=== PATIENT | male | born 1955 | race Hispanic/Latino ===

== ENCOUNTER 2021-05-01 10:07 | Inpatient (IN) | payer OTHER ==
[2021-05-01] MEDS ORDERED: Ketorolac Tromethamine 30 MG/ML VIAL ONE (10:57)
[2021-05-01] MEDS ORDERED: Dexamethasone 10 MG/ML VIAL ONE (10:57)
[2021-05-01] MEDS ORDERED: cefTRIAXone\\ROCEPHIN 2 GM VIAL ONE (10:57)
[2021-05-01] MEDS ORDERED: Acetaminophen 500 MG TAB ONE (10:57)
[2021-05-01] MEDS ORDERED: Azithromycin 500 MG VIAL ONE (10:58)
[2021-05-01 11:19] LABS: #Basophils 0.1 10x3/uL (0.0-0.2); #Monocytes 0.6 10x3/uL (0.0-1.1); #Neutrophils 13.2 10x3/uL (1.5-8.4); %Basophils 0.3 % (0.0-2.0); %Eosinophils 0.3 % (0.0-6.0); %Lymphocytes 5.2 % (18.0-47.0); %Monocytes 3.8 % (0.0-10.0); %Neutrophils 87.2 % (40.0-75.0); Hemoglobin 12.6 g/dL (13.5-17.5); Mean Corpuscular HGB CONC 34.4 g/dL (32.0-36.0); Mean Corpuscular Hemoglobin 29.3 pg (27.0-33.0); Mean Corpuscular Volume 85.1 fl (81.2-95.1); Mean Platelet Volume 10.3 fl (7.4-10.4); Platelet Count 368 10x3/uL (150-450); RBC Distribution Width 13.1 % (11.5-14.5); White Blood Cell (WBC) Count 15.2 10x3/uL (3.5-10.5)
[2021-05-01 11:28] LABS: Actual Bicarbonate (HCO3a) 23.1 mEq/L (22-28); Base Excess (BEa) 0.4 mEq/L (-2.0 to +3.0); CO2 Tension 30.8 mmHg (35.0-45.0); Calcium, Ionized (arterial) 1.01 mmol/L (1.12-1.30); Carboxyhemoglobin (COHb) 0.3 gm% (0.0-3.0); Hemoglobin (Hb) 11.5 g/dL (14.0-18.0); O2 Tension (PaO2), arterial 97.3 mmHg (> 80.0); Potassium - ABG Lab 3.3 mmol/L (3.70-5.30); Puncture Site RRA; pH, Arterial 7.49 (7.35-7.45)
[2021-05-01 11:28] LABS: ALT (SGPT) 74 U/L (8-55); AST (SGOT) 53 U/L (5-34); Albumin 3.4 g/dL (3.4-4.8); Alkaline Phosphatase 166 U/L (40-110); Anion Gap 18 mmol/L (10-20); BUN (Urea Nitrogen) 18 mg/dL (8.4-25.7); Bilirubin, Total 0.9 mg/dL (0.2-1.2); Calc. Creatinine Clearance 0 mL/min (70-130); Calcium 9.5 mg/dL (7.8-10.44); Carbon Dioxide 24 mmol/L (23-31); Chloride 94 mmol/L (98-107); Globulin 4.6 g/dL (2.4-3.5); Glucose 244 mg/dL (80-115); Potassium 3.8 mmol/L (3.5-5.1); Sodium 132 mmol/L (136-145)
[2021-05-01 11:48] LABS: CKMB 1.1 ng/mL (0-6.6)
[2021-05-01 12:33] LABS: SARS-CoV-2 NAA Rapid Test DETECTED (NotDetected)
[2021-05-01] MEDS ORDERED: Ivermectin 3 MG TAB PO SCH ×2 (13:00→16:15)
[2021-05-01] MEDS ORDERED: Enoxaparin Sodium 80 MG/0.8 ML SYRINGE ONE (13:58)
[2021-05-01] MEDS ORDERED: Ventolin HFA Inhaler 60 PUFF INHALER ONE (13:59)
[2021-05-01] MEDS ORDERED: Dextrose 50% Abboject 50 ML SYRINGE SLOW IVP PRN (14:12)
[2021-05-01] MEDS ORDERED: Dextrose 5% in Water 1,000 ML IV PRN (14:12)
[2021-05-01] MEDS ORDERED: HumaLOG 300 UNITS/3 ML VIAL SC PRN (14:12)
[2021-05-01] MEDS ORDERED: Guaifenesin DM 100-10/5 ML UDCUP PO PRN (14:13)
[2021-05-01] MEDS ORDERED: Sodium Chloride 0.9% 500 ML IV SCH (14:15)
[2021-05-01 14:49] LABS: Troponin I 0.071 ng/mL (< 0.028)
[2021-05-01 15:16] LABS: Lactic Acid 1.9 mmol/L (0.5-2.2)
[2021-05-01 16:10] LABS: Troponin I 0.065 ng/mL (< 0.028)
[2021-05-01] MEDS: Benzonatate 100 MG CAP PO PRN ×2 (17:04→22:51)
[2021-05-01] MEDS ORDERED: Tocilizumab 400 MG, Tocilizumab 200 MG in Sodium Chloride 0.9% 100 ML IV SCH (19:30)
[2021-05-01] MEDS: Colchicine 0.6 MG TAB PO SCH (20:08)
[2021-05-01] MEDS: Dexamethasone 10 MG in Sodium Chloride 0.9% 50 ML IVPB SCH (20:09)
[2021-05-01] MEDS: HumaLOG 300 UNITS/3 ML VIAL SC PRN (21:15)
[2021-05-02] MEDS: HumaLOG 300 UNITS/3 ML VIAL SC PRN ×4 (08:26→20:20)
[2021-05-02] MEDS: Enoxaparin Sodium 40 MG/0.4 ML SYRINGE SC SCH (08:27)
[2021-05-02] MEDS: Cholecalciferol 1,000 UNITS (25 MCG) TAB PO SCH (08:28)
[2021-05-02] MEDS: Zinc Sulfate 220 MG CAP PO SCH (08:28)
[2021-05-02] MEDS: Colchicine 0.6 MG TAB PO SCH (08:28)
[2021-05-02] MEDS: Ascorbic Acid 500 mg Chewable Tablet PO SCH (08:28)
[2021-05-02] MEDS: Pantoprazole 40 MG VIAL IVP SCH (08:30)
[2021-05-02] MEDS: Dexamethasone 10 MG in Sodium Chloride 0.9% 50 ML IVPB SCH ×2 (08:47→20:19)
[2021-05-02 08:53] LABS: ALT (SGPT) 62 U/L (8-55); AST (SGOT) 41 U/L (5-34); Alkaline Phosphatase 161 U/L (40-110); Anion Gap 18 mmol/L (10-20); BUN (Urea Nitrogen) 22 mg/dL (8.4-25.7); Bilirubin, Total 0.5 mg/dL (0.2-1.2); Calc. Creatinine Clearance 99 mL/min (70-130); Calcium 8.8 mg/dL (7.8-10.44); Carbon Dioxide 20 mmol/L (23-31); Chloride 98 mmol/L (98-107); Globulin 3.9 g/dL (2.4-3.5); Glucose 360 mg/dL (80-115); Potassium 4.1 mmol/L (3.5-5.1); Protein, Total 6.9 g/dL (5.8-8.1); Sodium 132 mmol/L (136-145)
[2021-05-02] MEDS ORDERED: Ivermectin 3 MG TAB PO SCH (09:00)
[2021-05-02] MEDS: Benzonatate 100 MG CAP PO PRN ×2 (09:18→13:43)
[2021-05-02] MEDS ORDERED: Azithromycin 500 MG in Sodium Chloride 0.9% 250 ML 250 ML IVPB SCH (11:00)
[2021-05-02 11:45] LABS: Hemoglobin A1c 8.7 % (4.0-6.0)
[2021-05-02] MEDS: cefTRIAXone\\ROCEPHIN 1 GM in Sodium Chloride 0.9% 100 ML IVPB SCH (12:04)
[2021-05-02] MEDS ORDERED: Lantus 1000 UNITS/10 ML VIAL SC SCH (21:00)
[2021-05-03] MEDS ORDERED: Insulin Regular 300 UNITS/3 ML VIAL ONE (00:04)
[2021-05-03] MEDS ORDERED: Insulin Regular 300 UNITS/3 ML VIAL IVP SCH (00:15)
[2021-05-03] MEDS ORDERED: INSULIN REGULAR IN 0.9 % NACL 100 UNIT in Sodium Chloride 0.9% 100 ML IVPB SCH (01:30)
[2021-05-03] MEDS: INSULIN REGULAR IN 0.9 % NACL 100 UNIT in Premix Bag 1 BAG IVPB SCH ×2 (01:59→07:51)
[2021-05-03 04:46] LABS: ALT (SGPT) 49 U/L (8-55); AST (SGOT) 20 U/L (5-34); Albumin 2.8 g/dL (3.4-4.8); Alkaline Phosphatase 180 U/L (40-110); Anion Gap 14 mmol/L (10-20); BUN (Urea Nitrogen) 26 mg/dL (8.4-25.7); Bilirubin, Total 0.3 mg/dL (0.2-1.2); CRP (Inflammatory) 15.93 mg/dL (= or < 0.5); Calc. Creatinine Clearance 97 mL/min (70-130); Calcium 8.8 mg/dL (7.8-10.44); Carbon Dioxide 23 mmol/L (23-31); Chloride 102 mmol/L (98-107); Globulin 3.6 g/dL (2.4-3.5); Glucose 343 mg/dL (80-115); Potassium 3.9 mmol/L (3.5-5.1); Protein, Total 6.4 g/dL (5.8-8.1); Sodium 135 mmol/L (136-145)
[2021-05-03] MEDS: Zinc Sulfate 220 MG CAP PO SCH (08:17)
[2021-05-03] MEDS: Enoxaparin Sodium 40 MG/0.4 ML SYRINGE SC SCH (08:17)
[2021-05-03] MEDS: Cholecalciferol 1,000 UNITS (25 MCG) TAB PO SCH (08:17)
[2021-05-03] MEDS: Pantoprazole 40 MG VIAL IVP SCH (08:17)
[2021-05-03] MEDS: Ascorbic Acid 500 mg Chewable Tablet PO SCH (08:18)
[2021-05-03] MEDS: cefTRIAXone\\ROCEPHIN 1 GM in Sodium Chloride 0.9% 100 ML IVPB SCH (12:00)
[2021-05-03] MEDS ORDERED: Dextrose 50% Abboject 50 ML SYRINGE SLOW IVP PRN (16:08)
[2021-05-03] MEDS ORDERED: Dextrose 5% in Water 1,000 ML IV PRN (16:08)
[2021-05-03] MEDS: Benzonatate 100 MG CAP PO PRN (20:17)
[2021-05-03] MEDS ORDERED: Lantus 1000 UNITS/10 ML VIAL SC SCH (21:00)
[2021-05-03] MEDS: HumaLOG 300 UNITS/3 ML VIAL SC PRN (21:26)
[2021-05-04] MEDS: Enoxaparin Sodium 40 MG/0.4 ML SYRINGE SC SCH (08:22)
[2021-05-04] MEDS: Pantoprazole 40 MG VIAL IVP SCH (08:22)
[2021-05-04] MEDS: Ascorbic Acid 500 mg Chewable Tablet PO SCH (08:22)
[2021-05-04] MEDS: Zinc Sulfate 220 MG CAP PO SCH (08:22)
[2021-05-04] MEDS: Cholecalciferol 1,000 UNITS (25 MCG) TAB PO SCH (08:22)
[2021-05-04] MEDS: HumaLOG 300 UNITS/3 ML VIAL SC PRN ×4 (08:40→21:34)
[2021-05-04 09:13] LABS: ALT (SGPT) 59 U/L (8-55); AST (SGOT) 41 U/L (5-34); Alkaline Phosphatase 166 U/L (40-110); Anion Gap 15 mmol/L (10-20); BUN (Urea Nitrogen) 22 mg/dL (8.4-25.7); Bilirubin, Total 0.6 mg/dL (0.2-1.2); Calc. Creatinine Clearance 110 mL/min (70-130); Carbon Dioxide 24 mmol/L (23-31); Chloride 101 mmol/L (98-107); Globulin 3.7 g/dL (2.4-3.5); Glucose 324 mg/dL (80-115); Potassium 4.5 mmol/L (3.5-5.1); Protein, Total 6.7 g/dL (5.8-8.1); Sodium 135 mmol/L (136-145)
[2021-05-04] MEDS: cefTRIAXone\\ROCEPHIN 1 GM in Sodium Chloride 0.9% 100 ML IVPB SCH (11:47)
[2021-05-04] MEDS: Lantus 1000 UNITS/10 ML VIAL SC SCH (21:33)
[2021-05-05 04:29] LABS: #Basophils 0.1 10x3/uL (0.0-0.2); #Eosinphils 0.2 10x3/uL (0.0-0.5); #Monocytes 0.7 10x3/uL (0.0-1.1); #Neutrophils 15.7 10x3/uL (1.5-8.4); %Basophils 0.3 % (0.0-2.0); %Eosinophils 0.8 % (0.0-6.0); %Monocytes 3.6 % (0.0-10.0); %Neutrophils 86.6 % (40.0-75.0); Mean Corpuscular HGB CONC 34.6 g/dL (32.0-36.0); Mean Corpuscular Hemoglobin 29.6 pg (27.0-33.0); Mean Corpuscular Volume 85.6 fl (81.2-95.1); Mean Platelet Volume 9.7 fl (7.4-10.4); Platelet Count 462 10x3/uL (150-450); RBC Distribution Width 13.1 % (11.5-14.5); Red Blood Cell (RBC) Count 4.39 10x6/uL (4.32-5.72); White Blood Cell (WBC) Count 18.1 10x3/uL (3.5-10.5)
[2021-05-05 04:42] LABS: ALT (SGPT) 63 U/L (8-55); AST (SGOT) 42 U/L (5-34); Albumin 2.8 g/dL (3.4-4.8); Alkaline Phosphatase 131 U/L (40-110); Anion Gap 14 mmol/L (10-20); BUN (Urea Nitrogen) 18 mg/dL (8.4-25.7); Bilirubin, Total 0.5 mg/dL (0.2-1.2); CRP (Inflammatory) 3.61 mg/dL (= or < 0.5); Calc. Creatinine Clearance 125 mL/min (70-130); Calcium 8.5 mg/dL (7.8-10.44); Carbon Dioxide 24 mmol/L (23-31); Chloride 102 mmol/L (98-107); Globulin 3.3 g/dL (2.4-3.5); Glucose 175 mg/dL (80-115); Potassium 4.5 mmol/L (3.5-5.1); Protein, Total 6.1 g/dL (5.8-8.1); Sodium 135 mmol/L (136-145)
[2021-05-05] MEDS: Zinc Sulfate 220 MG CAP PO SCH (08:42)
[2021-05-05] MEDS: Pantoprazole 40 MG VIAL IVP SCH (08:42)
[2021-05-05] MEDS: Enoxaparin Sodium 40 MG/0.4 ML SYRINGE SC SCH (08:43)
[2021-05-05] MEDS: Cholecalciferol 1,000 UNITS (25 MCG) TAB PO SCH (08:43)
[2021-05-05] MEDS: Clopidogrel Bisulfate 75 MG TAB PO SCH (08:43)
[2021-05-05] MEDS: Ascorbic Acid 500 mg Chewable Tablet PO SCH (08:43)
[2021-05-05] MEDS: cefTRIAXone\\ROCEPHIN 1 GM in Sodium Chloride 0.9% 100 ML IVPB SCH (11:25)
[2021-05-05] MEDS: HumaLOG 300 UNITS/3 ML VIAL SC PRN ×3 (12:49→22:45)
[2021-05-05] MEDS: Dexamethasone Sod Phosphate 8 MG in Sodium Chloride 0.9% 50 ML IVPB SCH (12:50)
[2021-05-05] MEDS ORDERED: Piperacillin/Tazobactam 3.375 GM in Sodium Chloride 0.9% 100 ML IVPB SCH (19:30)
[2021-05-05] MEDS: Lantus 1000 UNITS/10 ML VIAL SC SCH (20:08)
[2021-05-05] MEDS ORDERED: Piperacillin/Tazobactam 4.5 GM in Sodium Chloride 0.9% 100 ML IVPB SCH (22:00)
[2021-05-06] MEDS: Piperacillin/Tazobactam 3.375 GM in Sodium Chloride 0.9% 100 ML IVPB SCH ×3 (01:33→16:53)
[2021-05-06 04:51] LABS: ALT (SGPT) 110 U/L (8-55); AST (SGOT) 76 U/L (5-34); Albumin 3.1 g/dL (3.4-4.8); Alkaline Phosphatase 131 U/L (40-110); Anion Gap 15 mmol/L (10-20); BUN (Urea Nitrogen) 19 mg/dL (8.4-25.7); Bilirubin, Total 0.7 mg/dL (0.2-1.2); Calc. Creatinine Clearance 102 mL/min (70-130); Calcium 8.8 mg/dL (7.8-10.44); Carbon Dioxide 23 mmol/L (23-31); Chloride 100 mmol/L (98-107); Globulin 3.6 g/dL (2.4-3.5); Glucose 176 mg/dL (80-115); Potassium 4.4 mmol/L (3.5-5.1); Protein, Total 6.7 g/dL (5.8-8.1); Sodium 134 mmol/L (136-145)
[2021-05-06 05:04] LABS: MDiff Complete? YES
[2021-05-06 05:07] LABS: Band 4 % (5-11); Eosinophils 1 % (0-10); Lymphocytes 8 % (21-51); Monocytes 7 % (0-10); Neutrophil 79 % (42-75); Promyelocytes 1 % (0-0)
[2021-05-06 05:13] LABS: #Basophils 0.1 10x3/uL (0.0-0.2); #Eosinphils 0.2 10x3/uL (0.0-0.5); #Monocytes 0.5 10x3/uL (0.0-1.1); #Neutrophils 13.2 10x3/uL (1.5-8.4); %Basophils 0.5 % (0.0-2.0); %Eosinophils 1.2 % (0.0-6.0); %Lymphocytes 4.3 % (18.0-47.0); %Monocytes 3.3 % (0.0-10.0); %Neutrophils 85.6 % (40.0-75.0); Hemoglobin 14.8 g/dL (13.5-17.5); Mean Corpuscular HGB CONC 34.5 g/dL (32.0-36.0); Mean Corpuscular Hemoglobin 29.5 pg (27.0-33.0); Mean Corpuscular Volume 85.5 fl (81.2-95.1); Mean Platelet Volume 9.9 fl (7.4-10.4); Platelet Count 478 10x3/uL (150-450); RBC Distribution Width 13.3 % (11.5-14.5); Red Blood Cell (RBC) Count 5.02 10x6/uL (4.32-5.72); White Blood Cell (WBC) Count 15.5 10x3/uL (3.5-10.5)
[2021-05-06] MEDS: HumaLOG 300 UNITS/3 ML VIAL SC PRN ×3 (07:47→16:53)
[2021-05-06] MEDS: Pantoprazole 40 MG VIAL IVP SCH (08:39)
[2021-05-06] MEDS: Ascorbic Acid 500 mg Chewable Tablet PO SCH (08:39)
[2021-05-06] MEDS: Cholecalciferol 1,000 UNITS (25 MCG) TAB PO SCH (08:39)
[2021-05-06] MEDS: Clopidogrel Bisulfate 75 MG TAB PO SCH (08:39)
[2021-05-06] MEDS: Zinc Sulfate 220 MG CAP PO SCH (08:39)
[2021-05-06] MEDS: Enoxaparin Sodium 40 MG/0.4 ML SYRINGE SC SCH (08:39)
[2021-05-06] MEDS: Dexamethasone Sod Phosphate 8 MG in Sodium Chloride 0.9% 50 ML IVPB SCH (12:15)
[2021-05-06] MEDS: Lantus 1000 UNITS/10 ML VIAL SC SCH (21:25)
[2021-05-06] MEDS: Doxycycline 100 MG CAP PO SCH (21:41)
[2021-05-07] MEDS: Piperacillin/Tazobactam 3.375 GM in Sodium Chloride 0.9% 100 ML IVPB SCH ×4 (00:21→23:09)
[2021-05-07 04:35] LABS: #Basophils 0.1 10x3/uL (0.0-0.2); #Eosinphils 0.3 10x3/uL (0.0-0.5); #Monocytes 0.8 10x3/uL (0.0-1.1); #Neutrophils 8.7 10x3/uL (1.5-8.4); %Basophils 0.5 % (0.0-2.0); %Eosinophils 2.7 % (0.0-6.0); %Lymphocytes 6.7 % (18.0-47.0); %Monocytes 6.7 % (0.0-10.0); %Neutrophils 77.8 % (40.0-75.0); Hemoglobin 13.7 g/dL (13.5-17.5); Mean Corpuscular HGB CONC 33.3 g/dL (32.0-36.0); Mean Corpuscular Hemoglobin 29.3 pg (27.0-33.0); Mean Platelet Volume 9.9 fl (7.4-10.4); Platelet Count 472 10x3/uL (150-450); RBC Distribution Width 13.2 % (11.5-14.5); Red Blood Cell (RBC) Count 4.67 10x6/uL (4.32-5.72); White Blood Cell (WBC) Count 11.2 10x3/uL (3.5-10.5)
[2021-05-07 04:46] LABS: ALT (SGPT) 172 U/L (8-55); AST (SGOT) 99 U/L (5-34); Albumin 2.9 g/dL (3.4-4.8); Alkaline Phosphatase 115 U/L (40-110); Anion Gap 16 mmol/L (10-20); BUN (Urea Nitrogen) 26 mg/dL (8.4-25.7); Bilirubin, Total 0.6 mg/dL (0.2-1.2); CRP (Inflammatory) 1.14 mg/dL (= or < 0.5); Calc. Creatinine Clearance 96 mL/min (70-130); Calcium 8.5 mg/dL (7.8-10.44); Carbon Dioxide 23 mmol/L (23-31); Chloride 105 mmol/L (98-107); Globulin 3.1 g/dL (2.4-3.5); Glucose 140 mg/dL (80-115); Potassium 4.9 mmol/L (3.5-5.1); Sodium 139 mmol/L (136-145)
[2021-05-07 05:00] LABS: Platelet Morphology Comment Appears Adequate; RBC Morphology Normal
[2021-05-07] MEDS: Ascorbic Acid 500 mg Chewable Tablet PO SCH (09:55)
[2021-05-07] MEDS: Clopidogrel Bisulfate 75 MG TAB PO SCH (09:55)
[2021-05-07] MEDS: Cholecalciferol 1,000 UNITS (25 MCG) TAB PO SCH (09:55)
[2021-05-07] MEDS: Pantoprazole 40 MG VIAL IVP SCH (09:56)
[2021-05-07] MEDS: Doxycycline 100 MG CAP PO SCH ×2 (09:56→21:01)
[2021-05-07] MEDS: Zinc Sulfate 220 MG CAP PO SCH (09:56)
[2021-05-07] MEDS: Enoxaparin Sodium 40 MG/0.4 ML SYRINGE SC SCH (09:56)
[2021-05-07] MEDS: Dexamethasone Sod Phosphate 8 MG in Sodium Chloride 0.9% 50 ML IVPB SCH (12:48)
[2021-05-07] MEDS: HumaLOG 300 UNITS/3 ML VIAL SC PRN ×2 (18:05→21:04)
[2021-05-07] MEDS: Lantus 1000 UNITS/10 ML VIAL SC SCH (21:01)
[2021-05-08] MEDS: Ascorbic Acid 500 mg Chewable Tablet PO SCH (07:51)
[2021-05-08] MEDS: Cholecalciferol 1,000 UNITS (25 MCG) TAB PO SCH (07:51)
[2021-05-08] MEDS: Clopidogrel Bisulfate 75 MG TAB PO SCH (07:52)
[2021-05-08] MEDS: Zinc Sulfate 220 MG CAP PO SCH (07:52)
[2021-05-08] MEDS: Pantoprazole 40 MG VIAL IVP SCH (07:52)
[2021-05-08] MEDS: Enoxaparin Sodium 40 MG/0.4 ML SYRINGE SC SCH (07:53)
[2021-05-08] MEDS: Piperacillin/Tazobactam 3.375 GM in Sodium Chloride 0.9% 100 ML IVPB SCH ×2 (07:53→14:27)
[2021-05-08] MEDS: Doxycycline 100 MG CAP PO SCH ×2 (10:51→22:08)
[2021-05-08] MEDS: Dexamethasone Sod Phosphate 8 MG in Sodium Chloride 0.9% 50 ML IVPB SCH (11:13)
[2021-05-08] MEDS: HumaLOG 300 UNITS/3 ML VIAL SC PRN (17:17)
[2021-05-08] MEDS: Lantus 1000 UNITS/10 ML VIAL SC SCH (22:08)
[2021-05-09] MEDS: Piperacillin/Tazobactam 3.375 GM in Sodium Chloride 0.9% 100 ML IVPB SCH ×3 (00:32→16:34)
[2021-05-09] MEDS: Doxycycline 100 MG CAP PO SCH (08:06)
[2021-05-09] MEDS: Ascorbic Acid 500 mg Chewable Tablet PO SCH (08:06)
[2021-05-09] MEDS: Clopidogrel Bisulfate 75 MG TAB PO SCH (08:06)
[2021-05-09] MEDS: Cholecalciferol 1,000 UNITS (25 MCG) TAB PO SCH (08:06)
[2021-05-09] MEDS: Enoxaparin Sodium 40 MG/0.4 ML SYRINGE SC SCH (08:06)
[2021-05-09] MEDS: Pantoprazole 40 MG VIAL IVP SCH (08:06)
[2021-05-09] MEDS: Zinc Sulfate 220 MG CAP PO SCH (08:06)
[2021-05-09] MEDS: HumaLOG 300 UNITS/3 ML VIAL SC PRN (11:55)
[2021-05-09] MEDS: Dexamethasone Sod Phosphate 8 MG in Sodium Chloride 0.9% 50 ML IVPB SCH (12:33)
[2021-05-09] MEDS: Lantus 1000 UNITS/10 ML VIAL SC SCH (22:41)
[2021-05-10] MEDS: Dexamethasone 4 MG TAB PO SCH (09:45)
[2021-05-10] MEDS: Ascorbic Acid 500 mg Chewable Tablet PO SCH (09:45)
[2021-05-10] MEDS: Zinc Sulfate 220 MG CAP PO SCH (09:45)
[2021-05-10] MEDS: Clopidogrel Bisulfate 75 MG TAB PO SCH (09:45)
[2021-05-10] MEDS: Enoxaparin Sodium 40 MG/0.4 ML SYRINGE SC SCH (09:46)
[2021-05-10] MEDS: Cholecalciferol 1,000 UNITS (25 MCG) TAB PO SCH (09:47)
[2021-05-10] MEDS: Lantus 1000 UNITS/10 ML VIAL SC SCH (20:42)
[2021-05-10] MEDS: HumaLOG 300 UNITS/3 ML VIAL SC PRN (20:42)
[2021-05-11 09:27] LABS: Hemoglobin 13.9 g/dL (13.5-17.5); Mean Corpuscular HGB CONC 33.5 g/dL (32.0-36.0); Mean Corpuscular Hemoglobin 29.5 pg (27.0-33.0); Mean Corpuscular Volume 88.1 fl (81.2-95.1); Mean Platelet Volume 10.4 fl (7.4-10.4); Platelet Count 399 10x3/uL (150-450); RBC Distribution Width 13.5 % (11.5-14.5); Red Blood Cell (RBC) Count 4.71 10x6/uL (4.32-5.72); White Blood Cell (WBC) Count 9.6 10x3/uL (3.5-10.5)
[2021-05-11] MEDS: Clopidogrel Bisulfate 75 MG TAB PO SCH (09:34)
[2021-05-11] MEDS: Enoxaparin Sodium 40 MG/0.4 ML SYRINGE SC SCH (09:34)
[2021-05-11] MEDS: Dexamethasone 4 MG TAB PO SCH (09:34)
[2021-05-11] MEDS: Cholecalciferol 1,000 UNITS (25 MCG) TAB PO SCH (09:34)
[2021-05-11] MEDS: Ascorbic Acid 500 mg Chewable Tablet PO SCH (09:34)
[2021-05-11] MEDS: Zinc Sulfate 220 MG CAP PO SCH (09:39)
[2021-05-11 09:47] LABS: ALT (SGPT) 121 U/L (8-55); AST (SGOT) 24 U/L (5-34); Albumin 3.2 g/dL (3.4-4.8); Alkaline Phosphatase 94 U/L (40-110); Anion Gap 11 mmol/L (10-20); BUN (Urea Nitrogen) 22 mg/dL (8.4-25.7); CRP (Inflammatory) Less than 0.50 mg/dL (= or < 0.5); Calc. Creatinine Clearance 103 mL/min (70-130); Carbon Dioxide 26 mmol/L (23-31); Chloride 107 mmol/L (98-107); Globulin 2.8 g/dL (2.4-3.5); Glucose 131 mg/dL (80-115); Sodium 140 mmol/L (136-145)
[2021-05-11 10:19] LABS: MDiff Complete? YES
[2021-05-11 10:24] LABS: Eosinophils 1 % (0-10); Lymphocytes 10 % (21-51); Monocytes 18 % (0-10); Neutrophil 71 % (42-75)
[2021-05-11 10:25] LABS: Platelet Morphology Comment Appears Adequate
[2021-05-11 10:26] LABS: RBC Morphology Normal
[2021-05-11] MEDS: HumaLOG 300 UNITS/3 ML VIAL SC PRN ×3 (13:30→20:52)
[2021-05-11] MEDS: Lantus 1000 UNITS/10 ML VIAL SC SCH (20:52)
[2021-05-12 05:19] VITALS: BMI 26.2
[2021-05-12] MEDS: HumaLOG 300 UNITS/3 ML VIAL SC PRN ×3 (05:23→22:37)
[2021-05-12] MEDS: Zinc Sulfate 220 MG CAP PO SCH (09:20)
[2021-05-12] MEDS: Clopidogrel Bisulfate 75 MG TAB PO SCH (09:20)
[2021-05-12] MEDS: Ascorbic Acid 500 mg Chewable Tablet PO SCH (09:20)
[2021-05-12] MEDS: Cholecalciferol 1,000 UNITS (25 MCG) TAB PO SCH (09:20)
[2021-05-12] MEDS: Enoxaparin Sodium 40 MG/0.4 ML SYRINGE SC SCH (09:20)
[2021-05-12] MEDS: Dexamethasone 4 MG TAB PO SCH (09:20)
[2021-05-12] MEDS: Lantus 1000 UNITS/10 ML VIAL SC SCH (22:39)
[2021-05-13] MEDS: Clopidogrel Bisulfate 75 MG TAB PO SCH (09:49)
[2021-05-13] MEDS: Ascorbic Acid 500 mg Chewable Tablet PO SCH (09:49)
[2021-05-13] MEDS: Dexamethasone 4 MG TAB PO SCH (09:49)
[2021-05-13] MEDS: Cholecalciferol 1,000 UNITS (25 MCG) TAB PO SCH (09:49)
[2021-05-13] MEDS: Enoxaparin Sodium 40 MG/0.4 ML SYRINGE SC SCH (09:50)
[2021-05-13] MEDS: Zinc Sulfate 220 MG CAP PO SCH (09:50)
[2021-05-13] MEDS: HumaLOG 300 UNITS/3 ML VIAL SC PRN ×3 (12:21→21:55)
[2021-05-13] MEDS: Lantus 1000 UNITS/10 ML VIAL SC SCH (21:50)
[2021-05-14] MEDS: Ascorbic Acid 500 mg Chewable Tablet PO SCH (08:16)
[2021-05-14] MEDS: Dexamethasone 4 MG TAB PO SCH (08:16)
[2021-05-14] MEDS: Zinc Sulfate 220 MG CAP PO SCH (08:16)
[2021-05-14] MEDS: Enoxaparin Sodium 40 MG/0.4 ML SYRINGE SC SCH (08:16)
[2021-05-14] MEDS: Cholecalciferol 1,000 UNITS (25 MCG) TAB PO SCH (08:17)
[2021-05-14] MEDS: Clopidogrel Bisulfate 75 MG TAB PO SCH (08:17)
[2021-05-14] MEDS: HumaLOG 300 UNITS/3 ML VIAL SC PRN ×3 (13:09→21:15)
[2021-05-14] MEDS: Lantus 1000 UNITS/10 ML VIAL SC SCH (21:20)
[2021-05-15 07:12] LABS: #Monocytes 0.2 10x3/uL (0.0-1.1); #Neutrophils 1.7 10x3/uL (1.5-8.4); %Lymphocytes 23.4 % (18.0-47.0); %Monocytes 7.1 % (0.0-10.0); %Neutrophils 68.7 % (40.0-75.0); Hemoglobin 12.5 g/dL (13.5-17.5); Mean Corpuscular HGB CONC 32.4 g/dL (32.0-36.0); Mean Corpuscular Hemoglobin 28.7 pg (27.0-33.0); Mean Corpuscular Volume 88.7 fl (81.2-95.1); Mean Platelet Volume 10.8 fl (7.4-10.4); Platelet Count 152 10x3/uL (150-450); RBC Distribution Width 14.3 % (11.5-14.5); Red Blood Cell (RBC) Count 4.35 10x6/uL (4.32-5.72); White Blood Cell (WBC) Count 2.5 10x3/uL (3.5-10.5)
[2021-05-15 07:37] LABS: Anion Gap 16 mmol/L (10-20); BUN (Urea Nitrogen) 11 mg/dL (8.4-25.7); Calc. Creatinine Clearance 113 mL/min (70-130); Calcium 8.5 mg/dL (7.8-10.44); Carbon Dioxide 19 mmol/L (23-31); Chloride 105 mmol/L (98-107); Glucose 152 mg/dL (80-115); Potassium 3.8 mmol/L (3.5-5.1); Sodium 136 mmol/L (136-145)
[2021-05-15] MEDS: Ascorbic Acid 500 mg Chewable Tablet PO SCH (09:04)
[2021-05-15] MEDS: Cholecalciferol 1,000 UNITS (25 MCG) TAB PO SCH (09:04)
[2021-05-15] MEDS: Zinc Sulfate 220 MG CAP PO SCH (09:04)
[2021-05-15] MEDS: Clopidogrel Bisulfate 75 MG TAB PO SCH (09:04)
[2021-05-15] MEDS: Enoxaparin Sodium 40 MG/0.4 ML SYRINGE SC SCH (09:04)
[2021-05-15] MEDS: Dexamethasone 4 MG TAB PO SCH (09:06)
[2021-05-15 11:17] VITALS: TEMP 98.3
[2021-05-15] MEDS: HumaLOG 300 UNITS/3 ML VIAL SC PRN (16:45)
[2021-05-15 17:07] VITALS: BP 126/68
== END 2021-05-15 20:30 | disposition home or self-care (01) | DRG 871 ==
LOC: CSHERS 10:07 → CSHICU 15:33 → CSHTELE 05-09 13:37
PROVIDERS: ADMIT Family Medicine; ATTEND Internal Medicine
PROC: 8E0ZXY6 Isolation (ICD-10-PCS; principal; 2021-05-01)
PROC: XW033H5 Introduction of Tocilizumab into Peripheral Vein, Percutaneous Approach, New Technology Group 5 (ICD-10-PCS; 2021-05-01)
DX: A41.89 Other specified sepsis (principal); U07.1 COVID-19; J12.82 Pneumonia due to coronavirus disease 2019; J96.01 Acute respiratory failure with hypoxia; I24.8 Other forms of acute ischemic heart disease; E78.5 Hyperlipidemia, unspecified; I10 Essential (primary) hypertension; Z79.01 Long term (current) use of anticoagulants; Z79.84 Long term (current) use of oral hypoglycemic drugs; Z79.899 Other long term (current) drug therapy; E11.9 Type 2 diabetes mellitus without complications; Z86.73 Personal history of transient ischemic attack (TIA), and cerebral infarction without residual deficits; R77.8 Other specified abnormalities of plasma proteins; Z88.8 Allergy status to other drugs, medicaments and biological substances
CPT/HCPCS: 0240U; 36415; 36416; 36600; 71045; 71275; 80048; 80053; 82553; 82728; 82805; 83036; 83605; 83880; 84145; 84484; 85025; 85379; 86140; 87040; 93005; 94640; 94760; 96365; 96367; 96372; 96375; C9113; J0456; J0696; J1100; J1650; J1815; J1885; J2543; J3262; J3490; J8540